=== PATIENT | male | born 1995 | race Caucasian/White ===

== ENCOUNTER → 2018-03-20 17:36 | Outpatient (CLI) | payer OTHER, SELFPAY ==
--- NOTE | 2018-03-20 | DI.MRI.S_ITS ---
PROCEDURE: MR HEAD/BRAIN WO CON INDICATIONS: CLUSTER HEADACHES TECHNIQUE: Noncontrast axial T1 spin echo, axial T2 fast spin echo, sagittal and axial FLAIR, coronal T2 fast spin echo, axial gradient echo, axial diffusion and ADC through the brain. COMPARISON: None. FINDINGS: Image quality: Excellent. CSF Spaces: Basal cisterns are patent. No extra-axial fluid collections. Ventricles are normal in size and shape. Brain: No intracranial masses or hemorrhage. Hutton/white matter interface is normal. Brainstem appears normal. Diffusion-weighted images demonstrate no acute ischemic insult. No chronic ischemic insults. Normal intravascular flow voids are present. Skull and face: Calvarium has normal marrow signal. Orbits appear normal. Sinuses: Sinuses and mastoids are abnormal. The left mastoid air cells show a small degree of peripheral fluid signal, and more centrally they appear normal as does the appearance of the right mastoid air cells. The frontal sinuses bilaterally are opacified by mucosal thickening, and this extends into the ethmoid air cells greater on the left than the right. Within the maxillary sinuses the right maxillary sinus shows only a minimal degree of mucosal thickening and appears hypoplastic. The left maxillary sinus shows a prominent degree of concentric mucosal thickening. Minimal aeration in the left maxillary sinus is present. Finally, the left sphenoid sinus is virtually entirely opacified.. IMPRESSION: Brain parenchyma appears normal. Pansinusitis is present greater on the left than the right. Mucosal thickening without air-fluid levels is prominent as noted above. The sphenoid sinus for example is virtually entirely opacified on the left. ENT consultation appears warranted. Dictated by: Marcelo Santos M.D. on 03/21/2018 at 8:08 Approved by: Marcelo Santos M.D. on 03/21/2018 at 8:11
== END ==
DX: G44.009 Cluster headache syndrome, unspecified, not intractable (principal); J32.4 Chronic pansinusitis
CPT/HCPCS: 70551